=== PATIENT | female | born 1990 ===

== ENCOUNTER → 2020-09-24 14:31 | Outpatient (CLI) | payer BC, SELFPAY ==
--- NOTE | ~2020-09-24 | US_ITS ---
EXAMINATION: US OB >= 14 weeks Fetus DATE: 09/24/2020 15:20 INDICATION: survey TECHNIQUE: Multiple obstetric sonographic images performed. FINDINGS: No prior studies for comparison. There is a single living fetus in variable presentation. The placenta is posterior without placenta previa. Amniotic fluid volume is normal. cardiac activity and movement is noted with a heart rate of 153 beats per minute. The following anatomy was identified as normal: 4 chamber heart 3 vessel cord cord insertion kidneys urinary bladder stomach spine diaphragm ventricles cisterna magna cerebellum The following biometric data were obtained: BPD: 47mm corresponds to gestational age 20 weeks 2 days. Head circumference: 174 mm corresponds to gestational age 19 weeks 6 days. Abdominal circumference: 144 mm corresponds to gestational age 19 weeks 5 days. Femur length: 31 mm corresponds to gestational age 19 weeks 4 days. Head circumference to abdominal circumference ratio: 1.21 (normal range for expected gestational age is 1.08-1.26). Estimated weight: 309 grams +/- 46 grams using Hadlock method. IMPRESSION: 1: Single living intrauterine with an estimated gestational age of 19weeks 6days by current ultrasound measurements, with an EDC of 02/12/2021 in variable presentation. 2. Normal survey. Reviewed, dictated and finalized at location A. IMPRESSION: 1: Single living intrauterine with an estimated gestational age of 19 weeks 6days by current ultrasound measurements, with an EDC of 02/12/2021 in chandler iable presentation. 2. Normal survey.
== END ==
PROVIDERS: Visit Provider Obstetrics & Gynecology Gynecologic Oncology
DX: Z36.9 Encounter for antenatal screening, unspecified (principal); Z3A.19 19 weeks gestation of pregnancy
CPT/HCPCS: 76805